=== PATIENT | female | born 1950 | race Two or more races ===

== ENCOUNTER 2017-10-25 15:28 | Outpatient (CLI) | payer OTHER | END 2017-10-25 16:20 | disposition home or self-care (01) | LOC: RAD 501 15:28 | DX: M43.10 Spondylolisthesis, site unspecified (principal) ==

== ENCOUNTER 2018-01-23 11:15 | Inpatient (IN) | payer OTHER ==
[~2018-01-23] VITALS: Ht 165.1 cm; Wt 90.7 kg
[2018-01-23] MEDS ORDERED: GABAPENTIN800 MG PO (14:35)
[2018-01-23] MEDS ORDERED: GLIPIZIDE10 MG PO (14:35)
[2018-01-23] MEDS ORDERED: ARICEPT10 MG PO (14:35)
[2018-01-23] MEDS ORDERED: METFORMIN HCL500 MG PO (14:35)
[2018-01-23] MEDS ORDERED: SIMVASTATIN10 MG PO (14:36)
[2018-01-23] MEDS ORDERED: PAXIL20 MG PO (14:38)
[2018-01-23] MEDS ORDERED: LAMOTRIGINE25 M1 PO (14:38)
[2018-01-23] MEDS ORDERED: DESIREL PO (14:39)
[2018-01-23] MEDS ORDERED: CATAFLAN PO (14:40)
[2018-01-23] MEDS ORDERED: CYCLOSPORINE50 MG PO (14:40)
[2018-02-01] MEDS ORDERED: GABAPENTIN800 MG PO (11:30)
[2018-02-01] MEDS ORDERED: DOCUSATE SODIU100 MG PO (11:30)
[2018-02-01] MEDS ORDERED: AMOX-CLAV 875-1 EACH PO (11:30)
[2018-02-01] MEDS ORDERED: PERCOCET 5-3251 EACH PO (11:31)
[2018-02-01] MEDS ORDERED: CLONAZEPAM1 MG PO (11:31)
== END 2018-02-01 18:49 | disposition home or self-care (01) | DRG 460 ==
LOC: SURH 01-30 07:00 → PED 01-31 04:52 → O/R 01-31 04:52 → PED 01-31 19:04
PROVIDERS: Orthopaedic Surgery Orthopaedic Surgery of the Spine
PROC: 0SG10AJ Fusion of 2 or more Lumbar Vertebral Joints with Interbody Fusion Device, Posterior Approach, Anterior Column, Open Approach (ICD-10-PCS; 2018-01-31)
PROC: 0ST20ZZ Resection of Lumbar Vertebral Disc, Open Approach (ICD-10-PCS; 2018-01-31)
PROC: 07DS3ZZ Extraction of Vertebral Bone Marrow, Percutaneous Approach (ICD-10-PCS; 2018-01-31)
PROC: 0SG10A0 Fusion of 2 or more Lumbar Vertebral Joints with Interbody Fusion Device, Anterior Approach, Anterior Column, Open Approach (ICD-10-PCS; principal; 2018-01-31 12:00)
DX: M48.061 Spinal stenosis, lumbar region without neurogenic claudication (principal); E11.9 Type 2 diabetes mellitus without complications; M43.16 Spondylolisthesis, lumbar region